=== PATIENT | male | born 1945 | race Caucasian/White ===

== ENCOUNTER 2018-04-17 08:08 | Outpatient (CLI) | payer MEDICARE, BC ==
--- NOTE | 2018-04-17 09:50 | MRI ---
MRI CERVICAL SPINE WITHOUT CONTRAST: HISTORY: Neck pain, with radiculopathy. Chronic neck pain. COMPARISON: None. TECHNIQUE: MRI cervical spine is performed without intravenous Gadolinium administration. Multisequential, mult iplanar imaging is performed. FINDINGS: Appropriate T1 marrow signal intensity of the cervical vertebrae. Cervical spine vertebral body heig ht is maintained. There is no fracture. There is no significant STIR hyperintensity to suggest vert ebral body edema or ligamentous injury. Two millimeters of anterolisthesis of C2 upon C3, 1 mm of retrolisthesis of C4 upon C5, 2.2 mm retrol isthesis of C5 upon C6, 1 mm of retrolisthesis of C6 upon C7. Visualized brain parenchyma, cervicomedullary junction, cervical cord, and the upper thoracic cord ackerman ve a normal size and signal intensity. C2-C3: Central disk bulge abuts the thecal sac. No significant central canal stenosis. Neural fora men are patent bilaterally. C3-C4: Broad-based disk-osteophyte complex that abuts the thecal sac. Ventral subarachnoid space is effaced. Mild indentation and flattening of the ventral cord. Mild central canal stenosis. No T2 hyperintensity in the cord. Moderate to severe right and moderate left foraminal narrowing. C4-C5: Broad-based disk-osteophyte complex abuts the thecal sac. There is a central disk-osteophyte complex that abuts the thecal sac and deforms the midline cord. Ventral CSF signal intensity is sti ll maintained. Moderate to severe bilateral foraminal narrowing. C5-C6: Broad-based disk-osteophyte complex abuts the thecal sac. Ventral CSF signal intensity is st ill maintained. Moderate central canal stenosis with deformity of the cervical cord. No T2 hyperint ensity in the cord. Moderate bilateral foraminal narrowing. C6-C7: Central disk bulge abuts the thecal sac. Mild central canal stenosis. Mild to moderate bila teral foraminal narrowing. C7-T1: No significant central canal stenosis. Mild bilateral foraminal narrowing. IMPRESSION: Degenerative changes of the cervical spine as above. There are varying degrees of central canal sten osis and foraminal narrowing as detailed above. POS: [facility]
--- NOTE | 2018-04-17 10:51 | RAD ---
CERVICAL SPINE COMPLETE WITH FLEXION AND EXTENSION: HISTORY: Cervical pain. COMPARISON: Cervical MRI from the same day. FINDINGS: There is reversal of the normal cervical lordosis. Multi-level degenerative disk space height loss f rom C2-C7. There are anterior and posterior disk osteophyte complexes. There are surgical ge in the neck bilaterally. Open-mouth odontoid view is normal. No significant listhesis. No translation of flexion or extension. IMPRESSION: Moderate spondylosis. No listhesis with flexion or extension. POS: [facility]
== END 2018-04-17 08:09 | disposition home or self-care (01) ==
LOC: BICMRI 08:08
PROVIDERS: ATTEND Anesthesiology Pain Medicine
DX: M48.02 Spinal stenosis, cervical region (principal); M99.81 Other biomechanical lesions of cervical region; M47.892 Other spondylosis, cervical region
CPT/HCPCS: 72052; 72141

== ENCOUNTER 2018-04-24 15:05 | Outpatient (CLI) | payer MEDICARE, BC ==
--- NOTE | 2018-04-24 18:30 | MRI ---
MRI LUMBAR SPINE NONCONTRAST: Date: 04/24/18 HISTORY: Low back pain. Neurogenic claudication. FINDINGS: Conus medullaris has a normal appearance. Vertebral body heights are maintained. There is desiccation of all of the intervertebral discs. Bone marrow signal is heterogeneous and nonspecific. There are s cattered discogenic end plate changes and Schmorl's nodes. Fusiform ectasia of the lower abdominal ao rta. T12-L1: Mild osteophytosis. Central canal and neural foramina are patent. L1-2: Disc space narrowing and minimal degenerative retrolisthesis. Posterior disc bulge and circumf erential degenerative changes with mild stenosis of the central canal and moderate stenosis of each n eural foramen. L2-3: Disc space narrowing. Minimal degenerative retrolisthesis. Posterior disc bulge and circumfere ntial degenerative changes with moderate stenosis of the central canal and left neural foramen. There is far right lateral protrusion of the disc compressing the right nerve root within the neural bobby en. L3-4: Disc space narrowing and minimal degenerative retrolisthesis. Posterior disc bulge and circumf erential degenerative changes. Moderate stenosis of the central canal and severe stenosis of each ramona ral foramen. L4-5: Disc space narrowing. Minimal degenerative retrolisthesis. Left posterolateral disc herniation with inferior extension to the left L5 recess. Circumferential degenerative changes. Mild stenosis o f the central canal. Moderate right and severe left foraminal stenoses. L5-S1: Posterior disc protrusion with posterior annular fissure to the left of midline. Mild central canal stenosis. Mild right and severe left foraminal stenoses. Bilateral pars interarticularis defec ts are apparent without malalignment. IMPRESSION: 1. Moderate to large left posterolateral disc herniation at the L4-5 level with inferior extension t o the left L5 recess compressing the left L5 nerve root. 2. Severe multilevel degenerative changes throughout the cervical spine as detailed above, including severe lower bilateral foraminal stenoses. 3. Bilateral spondylolysis at the L5 level without spondylolisthesis. POS: [facility]
== END 2018-04-24 15:06 | disposition home or self-care (01) ==
LOC: BICMRI 15:05
PROVIDERS: ATTEND Anesthesiology Pain Medicine
DX: M48.062 Spinal stenosis, lumbar region with neurogenic claudication (principal); M51.26 Other intervertebral disc displacement, lumbar region; M47.896 Other spondylosis, lumbar region; M99.83 Other biomechanical lesions of lumbar region; M99.84 Other biomechanical lesions of sacral region; M43.06 Spondylolysis, lumbar region
CPT/HCPCS: 72148

== ENCOUNTER 2018-06-14 12:06 | Outpatient (CLI) | payer MEDICARE, BC ==
--- NOTE | 2018-06-14 13:29 | MRI ---
MRI LEFT SHOULDER: DATE: 06/14/2018. PROVIDED CLINICAL HISTORY: Left shoulder pain. FINDINGS: The components of the rotator cuff demonstrate no definite evidence for tear. Patient motion somewha t limits evaluation. The long head biceps tendon appears intact and normally located. The glenoid labrum and glenohumeral articular cartilage are suboptimally evaluated in the absence of joint distention but appear without definite tear. The amount of fluid within the glenohumeral joint is physiologic. There is slightly greater than physiologic subacromial subdeltoid bursal fluid. Acromioclavicular osteoarthrosis is demonstrated, producing mild mass effect upon the subjacent supra spinatus. No focal concerning regional marrow or muscular signal abnormality is evident. IMPRESSION: 1. Greater than physiologic subacromial subdeltoid bursal fluid, which may reflect bursitis. 2. Acromioclavicular joint osteoarthrosis with mild mass effect upon the subjacent supraspinatus. POS: [facility]
--- NOTE | 2018-06-14 13:54 | MRI ---
MRI RIGHT SHOULDER: DATE: 06/14/2018. PROVIDED CLINICAL HISTORY: Right shoulder pain. FINDINGS: The components of the rotator cuff appear intact. The long head biceps tendon within the intraarticu lar region is not identified with changes of probable biceps tenodesis seen of the proximal humeral s haft. The glenoid labrum and glenohumeral articular cartilage are suboptimally evaluated in the absence of joint distention. There is nonspecific linear signal alteration present at the superior labrum. No focal articular cartilage defect is apparent. The amount of fluid within the glenohumeral joint appears physiologic. There is no significant subac romial subdeltoid bursal fluid present. Acromioclavicular joint osteoarthrosis is demonstrated with no significant mass effect upon the subjacent supraspinatus. Simple intramuscular lipoma is seen wit hin the infraspinatus muscle. IMPRESSION: 1. No evidence for rotator cuff tear. 2. Acromioclavicular joint osteoarthrosis. POS: [facility]
== END 2018-06-14 12:07 | disposition home or self-care (01) ==
LOC: BICMRI 12:06
PROVIDERS: ATTEND Anesthesiology Pain Medicine
DX: S43.422A Sprain of left rotator cuff capsule, initial encounter (principal); S43.421A Sprain of right rotator cuff capsule, initial encounter; M19.012 Primary osteoarthritis, left shoulder; M19.011 Primary osteoarthritis, right shoulder

== ENCOUNTER 2019-01-01 10:09 | Outpatient (CLI) | payer MEDICARE, BC ==
[2019-01-01 12:49] LABS: INR-International Normal Ratio 1.2; Prothrombin Time 14.7 SEC (12.0-14.7)
[2019-01-01 12:50] LABS: PTT 36.9 SEC (22.9-36.1)
== END 2019-01-01 10:10 | disposition home or self-care (01) ==
LOC: LABBT 10:09
PROVIDERS: ATTEND Thoracic Surgery (Cardiothoracic Vascular Surgery)
DX: Z01.818 Encounter for other preprocedural examination (principal); I25.10 Atherosclerotic heart disease of native coronary artery without angina pectoris
CPT/HCPCS: 80048; 85025; 85610; 85730; 86850; 86900; 86901; 93005; 93010

== ENCOUNTER 2019-04-18 13:15 | Inpatient (IN) | payer MEDICARE, BC ==
[2019-04-18] MEDS ORDERED: Lidocaine 1% w/Epinephrine 1:100K 20 ML VIAL ONE (13:33)
[2019-04-18] MEDS ORDERED: Triple Antibiotic Oint 1 GM Packet ONE (14:38)
[2019-04-18] MEDS ORDERED: Morphine 4 MG/ML VIAL ONE (14:55)
[2019-04-18] MEDS ORDERED: Dextrose 50% Abboject 50 ML SYRINGE SLOW IVP PRN (15:57)
[2019-04-18] MEDS ORDERED: hydrALAZINE 20 MG/ML VIAL SLOW IVP PRN (15:57)
[2019-04-18] MEDS ORDERED: Ondansetron ODT 4 MG TAB PO PRN (15:57)
[2019-04-18] MEDS ORDERED: Ondansetron PF 4 MG/2 ML Vial IVP PRN (15:57)
[2019-04-18] MEDS ORDERED: Dextrose 5% in Water 1,000 ML IV PRN (15:57)
[2019-04-18] MEDS ORDERED: Cyclobenzaprine 10 MG TAB PO PRN (16:26)
[2019-04-18] MEDS ORDERED: Acetaminophen 500 MG TAB PO PRN (16:27)
[2019-04-18 16:32] VITALS: BMI 27.3
[2019-04-18] MEDS ORDERED: Insulin Regular 300 UNITS/3 ML VIAL SC PRN ×2 (16:38)
[2019-04-18] MEDS ORDERED: Acetaminophen 1,000 MG in Premix Bag 1 BAG IVPB SCH (16:45)
--- NOTE | 2019-04-18 17:30 | HP ---
REQUESTING PHYSICIAN: Dr. Martinez. ATTENDING SURGEON: Dr. Crow. CONSULTATION: Neurosurgery, Dr. Granados. HISTORY OF PRESENT ILLNESS: The patient is a 73-year-old man, who was walking up his stairs at his home this morning when he tripped and fell on the last stairs, was able to sit down, but then lost his balance and fell hitting the right side of his head. The patient was able to be assisted into his house, where he noted to have a laceration to the right side of his eyebrow. He had a family members bring him to the emergency department. In [place], where he underwent evaluation and examination, was noted to have a subarachnoid and subdural hematoma complicated by the fact that the patient is on Plavix. He was then transferred urgently to our facility for neurosurgical evaluation. The patient denied loss of consciousness and currently denies nausea, vomiting, or dizziness only that he has a slight headache. ALLERGIES: ERYTHROMYCIN. PAST MEDICAL HISTORY: Coronary artery disease, type 2 diabetes, chronic sinusitis, BPH, hypertension, arthritis, chronic back pain, chronic bronchitis, kidney stones, and peripheral vascular disease. PAST SURGICAL HISTORY: Lumbar microdiskectomy, , rupture biceps tendon repair. MEDICATIONS: 1. Glucophage. 2. Albuterol. 3. Erythropoietin. 4. Gabapentin. 5. Glipizide. 6. Flomax. 7. Flonase. 8. Melville. 9. Carvedilol. 10. Furosemide. 11. Lisinopril. 12. Spironolactone. 13. Plavix. PHYSICAL EXAMINATION: VITAL SIGNS: Blood pressure 117/75, heart rate 59, respirations 18, oxygen saturation 99% on room air, and temperature is 98.7. GENERAL: The patient is resting comfortably in bed. He is awake, alert, and oriented x3. Braulio Coma Scale is 15. HEENT: Head is normocephalic. There is a laceration to the lateral area of his right eyebrow that is being repaired in the emergency department. His extraocular motion intact. PERRLA bilaterally. Ears are atraumatic without discharge. Nose is atraumatic without discharge. Oropharynx is clear. NECK: Nontender. Trachea is midline. No JVD. CHEST: Clear to auscultation with good inspiratory and expiratory effort. HEART: Regular rate and rhythm. ABDOMEN: Soft, flat, and nontender with active bowel sounds. EXTREMITIES: Neurovascularly intact x4. The patient does have decreased sensation in bilateral lower extremities, which he attributes to what is most likely diabetic peripheral neuropathy. The patient's upper extremities have skin tears in the bilateral wrists that are dressed right now. BACK: There is abrasion. Tiny laceration noted to the right shoulder posterior area. LABORATORY FINDINGS: White blood cell count 9.4, hemoglobin 11.7, hematocrit 37.2, platelets 178. Sodium 140, potassium 4.3, chloride 103, CO2 of 22, BUN 24, creatinine 1.51, glucose 233. LFTs are unremarkable. PT 14, INR 1.1, and PTT 36. RADIOGRAPHIC REPORTS: CT of the brain without contrast shows an acute subarachnoid hemorrhage in the right frontal lobe with a tiny falcine subdural hemorrhage. CT of the C-spine without contrast shows no CT evidence fractured traumatic subluxation. Radiographs of the right wrist show no evidence of acute osseous abnormality. ASSESSMENT: 1. Status post ground level fall, on Plavix. 2. Acute subarachnoid and subdural hemorrhage in the right frontal lobe. 3. History of coronary artery disease, peripheral vascular disease. 4. History of hypertension and diabetes. PLAN: Plan will be to admit the patient to the [facility] for serial exams, repeat CT in the morning, sooner as needed. We will hold his Plavix. Resume his other medications once verified. He will have pain control, pulmonary toilet, gastritis, and mechanical VTE prophylaxis. The patient will be placed on a sliding scale insulin for his diabetes. The evaluation, examination, laboratory, and radiographic findings were discussed with Dr. Crow prior to this patient's admission. Job ID: [id number]
[2019-04-18] MEDS: HYDROcodone/Acetaminophen 10/325 mg Tablet PO PRN ×2 (17:35→22:15)
[2019-04-18] MEDS: Sodium Chloride 0.9% 1,000 ML IV SCH (17:47)
[2019-04-18] MEDS ORDERED: Ipratropium Bromide 2.5 ml Neb NEB PRN (18:39)
[2019-04-18] MEDS ORDERED: HYDROcodone/Acetaminophen 10/325 mg Tablet PO PRN (18:39)
[2019-04-18] MEDS: Carvedilol 3.125 MG TAB PO SCH (20:18)
--- NOTE | 2019-04-18 21:42 | CT ---
CTA of the head with IV contrast and 3-D reformatted imaging. DATE: 04/18/2019 8:30 PM HISTORY: Subarachnoid hemorrhage COMPARISON: Head CT earlier same day's referenced FINDINGS: Redemonstration of subarachnoid hemorrhage within sulci of the right frontal lobe. Incidental note of partially imaged retention cyst of right maxillary sinus. Right: ICA:Moderate atherosclerotic vascular calcification throughout the majority of the intracranial cours e of the distal right ICA MCA:No significant stenosis. LEONA:No significant stenosis. CATERING SALES MANAGER:No significant stenosis. LEFT: ICA:Moderate atherosclerotic vascular calcification MCA:No significant stenosis. LEONA:No significant stenosis. CATERING SALES MANAGER:No significant stenosis. Vertebrobasilar System: Left Vertebral:No significant stenosis. Right Vertebral:No significant stenosis. Basilar:No significant stenosis. IMPRESSION: No discrete intracranial aneurysm. Atherosclerotic vascular disease. Redemonstration of subarachnoid hemorrhage involving right frontal cerebral sulci
[2019-04-18] MEDS: Furosemide 40 MG TAB PO SCH (22:14)
[2019-04-18] MEDS: Famotidine/PF 20 mg/2ml Vial SLOW IVP SCH (22:14)
[2019-04-18] MEDS: Gabapentin 300 MG CAP PO SCH (22:14)
--- NOTE | 2019-04-18 22:59 | PRG ---
DATE OF SERVICE: 04/18/2019 SUBJECTIVE: Mr. Key is a 73-year-old male who is status post ground level fall on Plavix with a history of coronary artery disease, open heart surgery earlier this year with 3-vessel bypass, peripheral vascular disease with right femoral artery stenting planned next week, hypertension, diabetes. He sustained acute subarachnoid and subdural hemorrhage. The patient's GCS has been 15 with no focal neurology deficits. The patient reports a mild headache which has been stable. He tolerated his fluid diet with no nausea or vomiting. He developed no fever or shortness of breath. He had a CT [place], angio with contrast today which is negative. OBJECTIVE: GENERAL: The patient is lying down in bed, comfortable with no acute distress. The patient oriented x3. GCS 15. No acute respiratory distress. VITAL SIGNS: Temperature 97.7, heart rate 60, respiratory rate 18, O2 saturation 95% on room air, and blood pressure is 134/45. LUNGS: Clear bilaterally. HEART: Regular rate and rhythm. ABDOMEN: Soft, nondistended. EXTREMITIES: Neurovascularly intact x4. NEUROLOGY: No focal neurology deficits. ASSESSMENT: 1. Status post ground level fall on Plavix. 2. History of acute subarachnoid hemorrhage, stable. 3. History of coronary artery disease bypass, 3-vessel. 4. Peripheral vascular disease. 5. Diabetes. 6. Hypertension. PLAN: Will be to continue supportive care. The patient will have another CT scan tomorrow morning. We will advance diet after CT scan tomorrow morning if CT scan is stable. Continue nonpharmacology DVT prophylaxis. Job ID: [id number]
--- NOTE | 2019-04-19 00:17 | CON ---
DATE OF CONSULTATION: HISTORY OF PRESENT ILLNESS: Mr. Key is a 73-year-old man who tripped and fell going into his house over the steps. He was seen at the [facility] ER and a CT scan of his head showed some right-sided subarachnoid hemorrhage and subdural hemorrhage. He was alert and oriented. There was no midline shift. He was following all commands. He is, however, on Plavix and was transferred to the [facility] for further evaluation. When I saw Mr. Key this evening, he is alert and oriented. He does have a head wrap due to a laceration above his right eye. He was given a unit of platelets, but he is following all commands. He has appropriate speech. No lateralizing sensory or motor deficits. Memory, attention, all are normal. The patient denies numbness or tingling in arms. He does have a little bit of tingling in his lower extremities due to diabetic neuropathy. He has a small complaint of some soreness in the right shoulder, which also has some bruising following this fall, but he is in good spirits and states that his pain is mild over that right eye. REVIEW OF SYSTEMS: A 10-point review of systems has been completed and is negative other than stated above in HPI. PAST MEDICAL HISTORY: Heart murmur, diabetes, chronic sinusitis, enlarged prostate, hypertension, arthritis, chronic back pain, pulmonary disease, chronic bronchitis, history of kidney stones, and peripheral vascular disease. PAST SURGICAL HISTORY: Carotid endarterectomy, lumbar microdiskectomy, repair of biceps tendon, right arm surgery, stent, left groin, planned for right side this coming week. ALLERGIES: ERYTHROMYCIN. SOCIAL HISTORY: Former tobacco user, cigarettes. Denies alcohol or drug use. Lives at home alone. CURRENT MEDICATIONS: No recorded medications. PHYSICAL EXAMINATION: VITAL SIGNS: Temperature 97.7, heart rate 60, respirations 18, O2 saturations 95% on room air, blood pressure 134/45. CONSTITUTIONAL: The patient is awake, alert, oriented. He is afebrile, normotensive, appears nontoxic. HEENT: Head is normocephalic. There is head dressing providing compression over the laceration above the right eye. Does have ecchymosis above that right at this time. Pupils are equal, round, and reactive to light. Extraocular movements are intact. Hearing is intact. Moist mucous membranes. RESPIRATIONS: Normal work of breathing on room air. Symmetric chest rise. EXTREMITIES: The patient is moving all 4 extremities well. He does have abrasion and some ecchymosis on the posterior right shoulder and right knee. He is moving upper extremities well. He has bilateral 5/5 strength in deltoids, biceps, product management internship strength, hip flexion, hip extension, knee flexion, dorsiflexion, plantar flexion. NEUROLOGIC: The patient is awake, alert, oriented, GCS of 15. Speech is spontaneous and fluent. Normal fund of knowledge. Short and long-term memories are intact. There are no lateralizing sensory or motor deficits. There is no drift. IMAGING: CT brain, acute subarachnoid hemorrhage, right frontal lobe with tiny falcine subdural hemorrhage. CT cervical spine, no CT evidence of fracture or traumatic subluxation. ASSESSMENT AND PLAN: Mr. Key is a 73-year-old male who tripped and fell, sustaining a subarachnoid and subdural hemorrhage. He is being admitted to the trauma team. He has been up in the IMCU, getting frequent neuro checks, maintaining normal blood pressure. We are going to get a CT angiogram to rule out anterior communicating aneurysm and then followup CT brain in the morning. If any further questions, please contact Neurosurgery. Job ID: [id number]
[2019-04-19] MEDS: HYDROcodone/Acetaminophen 10/325 mg Tablet PO PRN ×5 (03:22→21:22)
[2019-04-19] MEDS: Sodium Chloride 0.9% 1,000 ML IV SCH ×2 (03:25→10:22)
[2019-04-19 04:06] LABS: #Basophils 0.1 thou/uL (0.0-0.2); #Eosinphils 0.3 thou/uL (0.0-0.7); #Lymphocytes 3.5 thou/uL (1.20-3.40); #Monocytes 0.8 thou/uL (0.11-0.59); #Neutrophils 3.9 thou/uL (1.40-6.50); %Basophils 0.9 % (0.0-1.0); %Eosinophils 3.2 % (0.0-10.0); %Lymphocytes 40.7 % (21.0-51.0); %Monocytes 9.1 % (0.0-10.0); %Neutrophils 46.1 % (42.0-75.0); Mean Corpuscular HGB CONC 33.7 g/dL (32.0-36.0); Mean Corpuscular Volume 91.7 fL (78.0-98.0); Mean Platelet Volume 7.1 fL (7.4-10.4); Platelet Count 208 thou/uL (130-400); Red Blood Cell (RBC) Count 3.55 mill/uL (4.70-6.10); White Blood Cell (WBC) Count 8.5 thou/uL (4.8-10.8)
[2019-04-19 04:14] LABS: INR-International Normal Ratio 1.1; PTT 32.5 SEC (22.9-36.1); Prothrombin Time 13.7 SEC (12.0-14.7)
[2019-04-19 04:24] LABS: Anion Gap 12 mmol/L (10-20); BUN (Urea Nitrogen) 19 mg/dL (8.4-25.7); Calc. Creatinine Clearance 67 mL/min (70-130); Calcium 8.9 mg/dL (7.8-10.44); Carbon Dioxide 26 mmol/L (23-31); Chloride 104 mmol/L (98-107); Estimated GFR-MDRD 61; Glucose 146 mg/dL (83-110); Magnesium 1.5 mg/dL (1.6-2.6); Phosphorus 3.4 mg/dL (2.3-4.7); Potassium 4.6 mmol/L (3.5-5.1); Sodium 137 mmol/L (136-145)
[2019-04-19] MEDS ORDERED: Magnesium 2 GM/50 ML 2 GM in Premix Bag 1 BAG IVPB SCH (07:00)
--- NOTE | 2019-04-19 07:49 | CT ---
PRELIMINARY REPORT/[facility]/EMERGENCY AFTER HOURS PROCEDURE PROCEDURE INFORMATION: Exam: CT Head Without Contrast Exam date and time: 04/19/2019 4:23 AM Clinical history: 73 years old, male; Condition or disease; Patient HX: F/u sah/sdh TECHNIQUE: Imaging protocol: Computed tomography of the head without contrast. COMPARISON: CTA Angio Head W WO Con 04/18/2019 9:17 PM FINDINGS: Brain: Volume loss and chronic small vessel ischemic change. Stable multifocal intracranial hemorrhage. Ventricles: Normal. No ventriculomegaly. Bones/joints: Unremarkable. No acute fracture. Sinuses: Right maxillary sinus mucous retention cyst versus polyp. Mastoid air cells: Visualized mastoid air cells are well aerated. Soft tissues: Unremarkable. IMPRESSION: Stable multifocal intracranial hemorrhage. Thank you for allowing us to participate in the care of your patient. Dictated and Authenticated by: Bassam Espinoza MD 04/19/2019 4:36 AM Central Time ([place] & [place]) FINAL REPORT HEAD CT WITHOUT CONTRAST: Date: 04/19/2019 COMPARISON: 04/18/2019 HISTORY: Reevaluate intracranial hemorrhage. FINDINGS: I agree with the preliminary report. There is subarachnoid hemorrhage within multiple cortical sulci within the right frontal region near the vertex. Small foci of subdural hemorrhage also suspected within the anterior/medial right frontal lobe, stable as well. No new hemorrhage. No midline shift or mass effect. Imaged paranasal sinuses/mastoid air cells demonstrate no acute findings. No displaced calvarial fracture. IMPRESSION: Stable intracranial hemorrhage. Code QA Transcribed Date/Time: 04/19/2019 8:35 AM
--- NOTE | 2019-04-19 08:12 | PRG ---
DATE OF SERVICE: 04/19/2019 I saw Toñito Key in the intermediate care unit this morning. I reviewed records and imaging, and I spoke to the patient and agreed with the notes of Sandrita Espinosa PA-C, dated 04/18/2019. Briefly, Toñito Key is a 73-year-old gentleman who missed a step yesterday and fell; he was trying to get to a seat and he fell again and injured his face and head. CT examination on arrival showed some subarachnoid hemorrhage some of which was in the interhemispheric fissure and some over the convexity in the sulci of the brain. Mr. Key was on Plavix at the time of the injury due to a recent peripheral vascular stenting in one of his legs. He is due for another stenting procedure in the contralateral leg on Monday. Platelets were administered. Overnight, Mr. Key has had headache. He has a bandage on his forehead, but he is otherwise feeling well. He tells me he feels like his cognitive status is back to normal. He has not gotten out of bed to test his balance yet. I do not find any cranial neuropathies on my examination nor do I find any lateralizing motor or sensory deficits. I reviewed a CT angiogram that we obtained looking for an ACOM aneurysm and there is none. I looked at a CT scan done this morning and there is no increase in the amount of intracerebral hemorrhage. We will need to make a decision on return to anti-platelet therapy. My preference is to use aspirin for the time being if necessary. If we can get by with no aspirin that would be my preference. If aspirin is used, he could be transitioned to Plavix once we document that the blood has cleared and we will set up an appointment for 10 days from now to check that. Job ID: [id number]
[2019-04-19] MEDS ORDERED: FLU VACC TS2019-20(65YR UP)/PF 180 MCG/0.5 ML SYRINGE IM ONE (09:00)
[2019-04-19] MEDS: Lisinopril 2.5 MG TAB PO SCH (10:20)
[2019-04-19] MEDS: Tamsulosin HCl 0.4 MG CAP PO SCH (10:21)
[2019-04-19] MEDS: Spironolactone 25 MG TAB PO SCH (10:21)
[2019-04-19] MEDS: Furosemide 40 MG TAB PO SCH ×2 (10:21→21:17)
[2019-04-19] MEDS: Famotidine/PF 20 mg/2ml Vial SLOW IVP SCH ×2 (10:21→21:17)
[2019-04-19] MEDS: Gabapentin 300 MG CAP PO SCH ×3 (10:21→21:17)
[2019-04-19] MEDS: Carvedilol 3.125 MG TAB PO SCH ×2 (10:21→21:17)
--- NOTE | 2019-04-19 11:55 | PRG ---
DATE OF SERVICE: 04/19/2019 SUBJECTIVE: The patient is currently on the IMCU. He is hospital day 2, status post ground level fall, in which he sustained subarachnoid, subdural hemorrhage. The patient was on aspirin and Plavix. He was admitted yesterday. Overnight, he had no issues. He remained GCS of 15 this morning other than slight headache. He has had no issues. He denies nausea or vomiting. PHYSICAL EXAMINATION: VITAL SIGNS: Temperature is 98.4, heart rate 99, blood pressure 147/89, respirations 16, and oxygen saturation 95% on room air. GENERAL: The patient is resting comfortably in bed. He is awake, alert, and oriented. Braulio Coma Scale is 15. His eyebrow dressing was changed again by Dr. Crow this morning. LUNGS: Clear to auscultation bilaterally. HEART: Regular rate and rhythm. ABDOMEN: Soft, flat, nontender with active bowel sounds. EXTREMITIES: Neurovascularly intact x4. LABORATORY FINDINGS: White blood cell count 8.5, hemoglobin 11.0, hematocrit 32.6, platelets 208. Sodium 137, potassium 4.6, chloride 104, CO2 of 26, BUN 19, creatinine 1.16, glucose 146, magnesium 1.5, phosphorus 3.4. PT 14, INR 1.1, and PTT 33. RADIOGRAPHS: CT of the brain without contrast shows a stable multifocal intracranial hemorrhage. ASSESSMENT AND PLAN: 1. Status post ground level fall, on Plavix. 2. Stable subarachnoid and subdural hemorrhages. 3. Right facial laceration, stable. 4. History of coronary artery disease, peripheral vascular disease. 5. History of hypertension, diabetes. PLAN: Plan will be to transfer the patient to the surgical floor and have the patient evaluated for rehab. Begin physical and occupational therapy and advance his diet. The patient was evaluated this morning with Dr. Crow during rounds. Job ID: [id number] [facility]
--- NOTE | 2019-04-19 22:55 | PRG ---
DATE OF SERVICE: 04/19/2019 SUBJECTIVE: Mr. Key is a 73-year-old male, status post ground-level fall, on Plavix with a history of coronary artery disease, open heart surgery earlier this year with 3-vessel bypass, peripheral vascular disease, hypertension, diabetes. He sustained acute subarachnoid, subdural hemorrhage, and has been stable. The patient's GCS remained 15. No focal neurology deficits. Repeat CT scan stable. The patient's headaches have resolved. However, the patient reports chronic pain from lower back and neck, which is going on for a long time. The patient tolerated with his regular diet. OBJECTIVE: VITAL SIGNS: Stable. GENERAL: Currently, the patient is lying down in bed comfortable with no acute distress. LUNGS: Clear bilaterally. HEART: Regular rate and rhythm. ABDOMEN: Soft, nondistended. EXTREMITIES: Neurovascularly intact x4. NEUROLOGIC: No focal neurology deficits. ASSESSMENT: 1. Status post ground-level fall, on Plavix. 2. History of acute subarachnoid and subdural hemorrhage, stable. 3. History of coronary artery disease with bypass 3-vessel. 4. Peripheral vascular disease. 5. Diabetes. 6. Hypertension. 7. Chronic lower back pain. PLAN: Will be continue supportive care. Continue pain control. Nonpharmacology. DVT prophylaxis. The patient anticipate discharge home with family support. Job ID: [id number]
[2019-04-20] MEDS: HYDROcodone/Acetaminophen 10/325 mg Tablet PO PRN ×3 (01:44→10:52)
[2019-04-20] MEDS: Gabapentin 300 MG CAP PO SCH ×2 (08:58→15:57)
[2019-04-20] MEDS: Spironolactone 25 MG TAB PO SCH (08:58)
[2019-04-20] MEDS: Famotidine/PF 20 mg/2ml Vial SLOW IVP SCH (08:59)
[2019-04-20] MEDS: Tamsulosin HCl 0.4 MG CAP PO SCH (08:59)
[2019-04-20] MEDS: Carvedilol 3.125 MG TAB PO SCH (11:08)
[2019-04-20] MEDS: Furosemide 40 MG TAB PO SCH (11:09)
[2019-04-20] MEDS: Lisinopril 2.5 MG TAB PO SCH (11:09)
[2019-04-20 12:04] VITALS: TEMP 97.8
[2019-04-20 15:41] VITALS: BP 106/62
--- NOTE | 2019-04-20 23:00 | DIS ---
DATE OF ADMISSION: 04/18/2019 DATE OF DISCHARGE: 04/20/2019 This is Brain Alonso PA-C dictating a report for Toñito Cano MD. CONSULTING PHYSICIAN: Lor Granados MD with Neurosurgery. ADMISSION DIAGNOSES: 1. Fall with subarachnoid bleed. 2. Subdural hemorrhage. 3. History of coronary artery disease, peripheral vascular disease status post stent placement in the left leg one month ago. 4. Hypertension and diabetes. DISCHARGE DIAGNOSES: 1. Mechanical fall on dual anti-platelet with subarachnoid and subdural hematoma. 2. History of coronary artery disease, peripheral vascular disease, diabetes, hypertension. DISCHARGE MEDICATIONS: 1. Glucophage. 2. Albuterol. 3. Erythropoietin. 4. Gabapentin. 5. Glipizide. 6. Flomax. 7. Flonase. 8. [place] home dosing for chronic pain. 9. Lasix. 10. Lisinopril. 11. Spironolactone. 12. Carvedilol. HOSPITAL COURSE: Mr. Key is a 73-year-old male, who experienced a mechanical fall on the date of admission resulting in subdural subarachnoid hemorrhage. He is on dual antiplatelet therapy. Of note, he had neurosurgery consultation, nonoperative. GCS remained 15. Repeat CT in 6 hours demonstrated no increase in the bleed. The Plavix and aspirin were held. The patient's neuro status remained stable. He had a slight headache. He has his chronic pain, but no other pain. His wound was repaired primarily above the right eye. The patient had a CTA of the head demonstrating no aneurysmal bleed. Neurosurgery recommended no on dual antiplatelets x10 days. No followup in clinic at that time. The patient remained hemodynamically stable. His blood pressure was a little soft on the date of discharge, nearly 100 systolic, but improved when he would ambulate. He was not dizzy. Ambulated without assistance over 300 feet. PT recommended home care. On the date of discharge, I have tried twice to contact Cardiology given that he did have a stent placed one month ago and is on dual anti-platelet and consideration for continuing Plavix or the known risk of clotting off the stent. The paging service is still trying to get a hold of them at the time of this dictation. I have discussed this with the patient, as well as Neurosurgery and the patient's family. They would like to go ahead and be discharged home now, despite we have not been able to speak to cardiology. They have primary care and will follow up with him on Monday. I have explained the risk of both being on dual anti-platelet therapy in the setting of intracranial hemorrhage especially under 72 hours, but also the risk that not resuming at least some anti-platelet with a stent under three months has a higher risk of clotting off. He is going to call his anesthesiology physician assistant. If they call me, I can contact. I would like to just let them know to follow up with the patient immediately. Also, the patient will follow up with Dr. Mendoza and with Neurosurgery. At the time of discharge, the patient has tolerated diet. He has voided well. He is walking spontaneously with no acute distress. DISCHARGE PLAN: Home. FOLLOWUP: 1. Follow up with Dr. Mendoza. 2. Follow up with Dr. Granados in 10 days. 3. Follow up with Cardiology. I have updated the patient and the patient's family at the bedside and answered all questions. PHYSICAL EXAMINATION: VITAL SIGNS: At the date of discharge, temperature is 97.8, blood pressure is now 148/76, heart rate is 70, respiratory rate is 16, saturating 98% on room air. GENERAL: A 73-year-old male, in no acute distress, sitting up in bed. HEENT: Trauma about the right eye. Ecchymosis is appreciated. No laceration with primary repair. Pupils are equal and midline. Trachea is midline. RESPIRATORY: Equal rise and fall. Bilateral breath sounds. Clear to auscultation in upper and lower bilaterally. CARDIOVASCULAR: Irregularly irregular. Trace murmur is appreciated. No edema. Warm extremities, strong pulses. ABDOMEN: Soft and nontender. Pelvis is stable. MUSCULOSKELETAL: Moves extremities well. PSYCH: Normal mood and affect. NEUROLOGIC: Alert and orient to person, place, time and events. No gross deficits are appreciated. LABORATORY DATA: Today shows a glucose of 234. Again, patient is being discharged home. I have given strict return precautions, both the patient and the patient's family, and they verbalized understanding the same. Greater than 45 minutes was taken in discharge planning of this patient. Job ID: [id number] Addendum: No call was received from cardiology. DINO
== END 2019-04-20 16:42 | disposition home or self-care (01) | DRG 87 ==
LOC: ERS 13:15 → IMCU/EMU 15:32 → SURG B 04-19 14:38
PROVIDERS: ADMIT Surgery; ATTEND Surgery
DX: S06.5X0A Traumatic subdural hemorrhage without loss of consciousness, initial encounter (principal); S06.6X0A Traumatic subarachnoid hemorrhage without loss of consciousness, initial encounter; S01.112A Laceration without foreign body of left eyelid and periocular area, initial encounter; W10.9XXA Fall (on) (from) unspecified stairs and steps, initial encounter; I25.10 Atherosclerotic heart disease of native coronary artery without angina pectoris; N40.0 Benign prostatic hyperplasia without lower urinary tract symptoms; I10 Essential (primary) hypertension; E11.9 Type 2 diabetes mellitus without complications; M19.91 Primary osteoarthritis, unspecified site; G89.29 Other chronic pain; I73.9 Peripheral vascular disease, unspecified; M54.5 Low back pain; R40.2412 Glasgow coma scale score 13-15, at arrival to emergency department; Z98.890 Other specified postprocedural states; Z79.02 Long term (current) use of antithrombotics/antiplatelets; Z79.899 Other long term (current) drug therapy; Z87.891 Personal history of nicotine dependence
CPT/HCPCS: 12011; 36415; 36416; 36430; 70450; 70496; 80048; 83735; 84100; 85025; 85610; 85730; 86850; 86900; 86901; 90471; 90662; 96374; G0008; G0390; J0131; J1815; J2270; J3475; P9035; S0028

== ENCOUNTER 2019-05-14 13:17 | Outpatient (CLI) | payer MEDICARE, BC ==
--- NOTE | 2019-05-14 13:46 | RAD ---
EXAM: Two views chest PROVIDED CLINICAL HISTORY: Dyspnea COMPARISON: Chest x-ray on CT thorax on 06/30/2019 obtained at [facility]. FINDINGS: Post surgical changes related to median sternotomy and prior cardiac valve replacement are noted. Car diac silhouette and pulmonary vasculature are within normal limits. Noncalcified pulmonary nodule is seen in the right upper lobe. This is stable when compared to the prior chest x-ray in 2013, and t his nodule was also seen on the prior CT thorax. Lungs are otherwise clear. Vascular calcifications are seen in the thoracic aorta. Osseous structures have a normal appearance IMPRESSION: 1. Stable pulmonary nodule right upper lobe. 2. No acute cardiopulmonary process.
== END 2019-05-14 13:18 | disposition home or self-care (01) ==
LOC: RAD 13:17
PROVIDERS: ATTEND Internal Medicine Pulmonary Disease
DX: R06.00 Dyspnea, unspecified (principal); R91.1 Solitary pulmonary nodule
CPT/HCPCS: 71046

== ENCOUNTER 2021-05-01 16:27 | Emergency (ER) | payer MEDICARE, BC ==
[2021-05-01 17:55] LABS: #Basophils 0.1 thou/uL (0.0-0.2); #Eosinphils 0.1 thou/uL (0.0-0.7); #Lymphocytes 3.6 thou/uL (1.20-3.40); #Monocytes 0.8 thou/uL (0.11-0.59); #Neutrophils 6.3 thou/uL (1.40-6.50); %Basophils 0.6 % (0.0-1.0); %Eosinophils 1.1 % (0.0-10.0); %Lymphocytes 32.8 % (21.0-51.0); %Monocytes 7.6 % (0.0-10.0); %Neutrophils 57.9 % (42.0-75.0); Hemoglobin 13.9 g/dL (14.0-18.0); Mean Corpuscular HGB CONC 33.9 g/dL (32.0-36.0); Mean Corpuscular Volume 94.6 fL (78.0-98.0); Mean Platelet Volume 7.1 fL (7.4-10.4); Platelet Count 155 thou/uL (130-400); RBC Distribution Width 13.9 % (11.5-14.5); Red Blood Cell (RBC) Count 4.35 mill/uL (4.70-6.10); White Blood Cell (WBC) Count 10.8 thou/uL (4.8-10.8)
[2021-05-01 18:04] LABS: ALT (SGPT) 20 U/L (8-55); AST (SGOT) 18 U/L (5-34); Albumin 3.7 g/dL (3.4-4.8); Alkaline Phosphatase 46 U/L (40-110); Anion Gap 19 mmol/L (10-20); BUN (Urea Nitrogen) 37 mg/dL (8.4-25.7); Bilirubin, Total 0.6 mg/dL (0.2-1.2); Calc. Creatinine Clearance 0 mL/min (70-130); Calcium 9.2 mg/dL (7.8-10.44); Carbon Dioxide 22 mmol/L (23-31); Chloride 103 mmol/L (98-107); Globulin 2.8 g/dL (2.4-3.5); Glucose 121 mg/dL (83-110); Magnesium 1.9 mg/dL (1.6-2.6); Protein, Total 6.5 g/dL (5.8-8.1); Sodium 140 mmol/L (136-145)
== END 2021-05-01 18:25 | disposition home or self-care (01) ==
LOC: ERS 16:27
DX: U07.1 COVID-19 (principal); E11.9 Type 2 diabetes mellitus without complications; I10 Essential (primary) hypertension; Z87.891 Personal history of nicotine dependence; Z79.899 Other long term (current) drug therapy
CPT/HCPCS: 36415; 71045; 80053; 83735; 83880; 84443; 84484; 85025; 93005

== ENCOUNTER 2022-11-17 09:49 | Outpatient (CLI) | payer MEDICARE, BC | END 2022-11-17 09:50 | disposition home or self-care (01) | LOC: RAD 09:49 | PROVIDERS: ATTEND Internal Medicine Critical Care Medicine | DX: R06.00 Dyspnea, unspecified (principal); R91.1 Solitary pulmonary nodule | CPT/HCPCS: 71046 ==

== ENCOUNTER 2024-01-24 12:35 | Outpatient (CLI) | payer MEDICARE, BC | END 2024-01-24 12:36 | disposition home or self-care (01) | LOC: BICCT 12:35 | PROVIDERS: ATTEND Internal Medicine Critical Care Medicine | DX: R91.8 Other nonspecific abnormal finding of lung field (principal); J43.9 Emphysema, unspecified; J98.11 Atelectasis; I25.10 Atherosclerotic heart disease of native coronary artery without angina pectoris; D17.21 Benign lipomatous neoplasm of skin and subcutaneous tissue of right arm; Z95.0 Presence of cardiac pacemaker; Z95.1 Presence of aortocoronary bypass graft | CPT/HCPCS: 71250 ==